=== PATIENT | male | born 1965 | race African-American/Black ===

== ENCOUNTER 2018-04-04 08:03 | Emergency (ER) | payer OTHER ==
[~2018-04-04] VITALS: Ht 185.4 cm; Wt 108.9 kg
[2018-04-04 08:11] VITALS: BP 162/99
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
[2018-04-04] MEDS ORDERED: TRAM50TA PO (09:30)
[2018-04-04] MEDS ORDERED: PRED-220 PO (09:30)
[2018-04-04] MEDS ORDERED: MECLIZINE HCL 12.5 MG TABLET. ONE (09:30)
[2018-04-04] MEDS ORDERED: CYCL10TA2 PO (09:30)
== END 2018-04-04 09:40 | disposition home or self-care (01) ==
LOC: ER 08:03
DX: S13.4XXA Sprain of ligaments of cervical spine, initial encounter (principal); M54.5 Low back pain; V53.5XXA Driver of pick-up truck or van injured in collision with car, pick-up truck or van in traffic accident, initial encounter; Y93.89 Activity, other specified; Y92.410 Unspecified street and highway as the place of occurrence of the external cause; Y99.8 Other external cause status
CPT/HCPCS: 72050; 72110; 99283